=== PATIENT | female | born 2000 | race African-American/Black ===

== ENCOUNTER 2019-03-24 21:11 | Emergency (ER) | payer OTHER ==
[2019-03-24 22:29] LABS: Bilirubin Negative (Negative); Blood, Urine Moderate (Negative); Clarity CLEAR (Clear); Glucose, Urine (Dipstick) Negative (Negative); Leukocyte Small (Negative); Nitrite Negative (Negative); Protein, Urine (Dipstick) Negative (Neg-Trace); Specific Gravity, Urine 1.031 (1.002-1.036); Urobilinogen 0.2 mg/dL (0.2-1.0)
[2019-03-24 22:34] LABS: Bacteria/HPF None Seen HPF (None Seen); Hyaline Casts/LPF 7-10 HYALINE CAST LPF (0-3 Hyaline); RBC/HPF 0-3 HPF (0-3); Squamous Epithelial 0-3 HPF (0-3); WBC/HPF 21-50 HPF (0-3)
[2019-03-24 22:53] LABS: BHCG - Serum Negative (NEGATIVE)
[2019-03-24 22:54] LABS: Pregs Control Background? CLEAR/WHITE (CLR/WHITE); Pregs Control Bar Appear? YES (CONTROL BAR)
== END 2019-03-25 00:16 | disposition home or self-care (01) ==
LOC: ERS 21:11
DX: N93.9 Abnormal uterine and vaginal bleeding, unspecified (principal); G40.909 Epilepsy, unspecified, not intractable, without status epilepticus; J45.909 Unspecified asthma, uncomplicated; F32.9 Major depressive disorder, single episode, unspecified
CPT/HCPCS: 36415; 81003; 81015; 84703; 87086; 99284